=== PATIENT | female | born 2005 | race Caucasian/White ===

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

== ENCOUNTER 2023-08-21 02:04 | Day surgery (SDC) | payer OTHER, SELFPAY ==
[2023-08-12 10:23] VITALS: BMI 18.7
--- NOTE | 2023-08-12 10:29 | PC.NURSE ---
Report to the Outpatient Waiting Room, entrance under the green pavilion located off [facility], at time 0600_ on date _08/21/23_. Planned Procedure Time: _0730_. Time changes happen often and if your time is changed the preop area will call you the afternoon before. - You and your visitor will be asked to self-screen and do not enter if you have any COVID symptoms. - A mask is optional within the hospital at this time. Patients may have clear liquids (water, carbonated beverages, clear teas, apple juice) until 3 hours prior to surgery with a maximum of 20 ounces. - No food from midnight until time of surgery - Infants may have breast milk until 4 hours before surgery, formula 6 hours prior to surgery. - Children will be allowed to drink immediately following surgery. If applicable, please bring a bottle or sippy cup to assist with drinking. Juice, water, soda, and popsicles are readily available. For infants on formula, please bring formula the day of surgery. Pacifiers are allowed. Take the following medications with a SIP of water the morning of surgery: FLUOXITINE DO NOT STOP ANY OF YOUR OTHER PRESCRIPTION MEDICATIONS PRIOR TO SURGERY ?EXCEPT THE FOLLOWING Medications to discontinue per physician NONE Date to take last dose Please no make-up, nail latvian, hairspray, perfume, deodorant, or body powder the day of surgery. No jewelry (including any body piercings) or valuables the day of surgery, leave them at home. Please take a shower or bath the night before, or the morning of, surgery with an antibacterial soap. Wear comfortable, loose fitting clothing. Children are encouraged to wear pajamas. - Jewelry must be removed prior to entering the operating room. Rings and piercings that are not removed may be cut off. - The hospital will not accept responsibility for valuables. - Please leave all valuables, including medications, at home the day of surgery. If you are going home after surgery, a licensed services delivery driver must drive you home. - NO public transportation without another adult if you receive anesthesia. - We recommend that an adult stay with you for 24 hours following discharge. - We also recommend that you do not drive, make important decision, drink alcoholic beverages, or take any drugs that were not prescribed by your health care provider for at least 24 hours after your discharge time. For Pediatric surgeries, we recommend two adults accompany the child home. Follow any additional instructions given to you from your surgeon. If you or anyone in your household have experienced Covid symptoms in the past week, please notify your surgeon or the nurse liaison at the phone number below for possible testing. Telephone instructions given to _PATIENT__and asked if any additional questions and then verbalized understanding. Patient advised to call surgeon office or pre surgery nurse liaison [phone] if any additional questions.
[2023-08-21] VITALS (10 sets, daily range): BP systolic 101–134; BP diastolic 61–91; PULSE 79–106; RESP 14–18; TEMP 35.9–36.4; O2SAT 100
[2023-08-21] MEDS: LACTATED RINGERS 1,000 ML 30 ML IV CONT ×2 (06:40→08:54)
--- NOTE | 2023-08-21 07:05 | WPDHPUPDATE1 ---
History and Physical Update Update Date/Time: 08/21/23 07:05 History and Physical has been reviewed, including an updated exam of the patient. There are NO changes in the patient's condition. Risks, benefits, and alternatives have been discussed and questions answered. Patient agrees to proceed with procedure.
--- NOTE | 2023-08-21 07:05 | W.PM.PROC2 ---
Procedure Note - Detailed Date of Procedure 08/21/23 Pre-op Diagnosis Micromastia Post-op Diagnosis Same Procedure Performed Bilateral augmentation mammaplasty Surgeon Golden Sierra MD Anesthesia General Findings Bilateral Matthew Saline implants filled to 330 cc Right - REF# [id number] SN [id number] Left - REF# [id number] SN [id number] Description of Procedure She is here today for bilateral breast augmentation. Previously and again today the risks, benefits, alternatives were discussed in extensive detail. I wanted her to be very realistic about the risks involved as well as expectations. We discussed aftercare and what to monitor for. Made sure answered all of her questions to her satisfaction today and consent was obtained. Marked in the preoperative holding area with their verification. The patient was taken to the operating room placed supine on the operating table. Anesthesia was provided by anesthesiology. A surgical time-out was taken. We cleansed the skin and 1% lidocaine and 0.25% Marcaine with epinephrine was used anesthetize as a field block. She was prepped and draped in a standard sterile fashion. Tegaderm nipple Ulrich were placed. A 15 blade used to make an incision along the inframammary fold. Dissection was continued at 45 degree angle until the chest wall as identified. I incised the pectoralis major along its inferior border and completely released the inferior border leaving the medial border intact. I created a subpectoral pocket in the appropriate dimensions based on our preoperative planning for the implant. I then copiously irrigated with saline solution and verified a strict hemostasis. Next a Betadine containing solution to irrigate the pocket. I washed my gloves with the Betadine solution. We washed the implant immediately upon opening it and all air was removed. The implant was introduced into the pocket and filled with a fill kit to the volume listed above. Having verified positioning of the implant this was closed using 2-0 PDS followed by 3-0 Monocryl in a running subcuticular 4-0 Monocryl followed by tissue glue. Fluffs and surgical bra were placed. Patient was awoke and taken to PACU without difficulty. All instrument sponge counts were correct at the end of the case. Estimated Blood Loss 25 Drains No Packing No Pathology None sent Complications No immediate complications Condition Stable Disposition PACU
--- NOTE | 2023-08-21 07:15 | WPDANESEPPF ---
Anes - Initial Pre Proc Eval Procedure: Operation Date: 08/21/23 07:30 Proposed Procedures p Bilateral Breast Augmentation with Galaflex - Golden Sierra MD Date/Time: 08/21/23 07:15 Surgeon: Golden Sierra MD Pre Op Diagnosis: Micromastia Patient Data Age: 17 Gender: F Height: 1.6 m Weight: 46.3 kg Last Vital Signs Temp 97.1 F L 08/21/23 06:42 Pulse 79 08/21/23 06:42 Resp 16 08/21/23 06:42 BP 101/61 08/21/23 06:42 Pulse Ox 100 08/21/23 06:42 O2 Del Method Room Air 08/21/23 06:42 Allergies Allergy/AdvReac Type Severity Reaction Status Date / Time No Known Allergies Allergy Verified 08/21/23 07:01 Home Medications Medication Instructions Recorded Confirmed Type fluoxetine 10 mg capsule 10 mg PO DAILY 08/12/23 08/21/23 History Patient hx anesthesia problems: none Family hx anesthesia problems: none Results Review: All pre-operative results and documents have been reviewed as part of the pre-operative evaluation. [facility] Past Medical History Medical History (Updated 08/21/21 @ 00:00 by Ruddy Mera) Patient denies significant medical history Social History Social History (Updated 05/28/21 @ 19:34 by Sukhi Franklin DO) Smoking status: Never smoker Alcohol intake: current Alcohol use details: 4 PER MONTH Substance use: never Living arrangements: with family Anes - Eval Final PreProcedure Day of Procedure 08/21/23 07:15 Patient weight: normal Heart: regular rate and rhythm Lungs: clear to auscultation Airway: Mallampati scale class II Neurological: alert and oriented Last oral intake: >/= 8 hours ASA classification: II Emergent: no Anesthetic plan: proceed Anesthesia type and monitoring: general LMA and standard monitoring Results Review: All pre-operative results and documents have been reviewed as part of the pre-operative evaluation. Informed Consent: The patient's anesthetic plan and its attendant risks and benefits were discussed with the patient/family/POA. Questions were solicited and answers provided to the satisfaction of the patient/family/POA.
[2023-08-21] MEDS: BUPivacaine HCL 0.25% PF 30 ML VIAL INFILTRATE (07:28)
[2023-08-21] MEDS: ceFAZolin 2 GM/D5W 50 ML 2 GM/50 ML BAG IVPB (07:28)
[2023-08-21] MEDS: LIDO 1%/EPINEPHRINE 1:100,000 50 ML VIAL 30 ML INFILTRATE (07:28)
[2023-08-21] MEDS: NACL 0.9% IRRIG POUR BOTTLE 900 ML, GENTAMICIN SULFATE INJ 160 MG, ceFAZolin 2 GM, POVI... IRRIGATION (07:28)
[2023-08-21] MEDS: TRANEXAMIC ACID 1,000MG/ISO100 1,000 MG/100 ML BAG 200 MG IVPB (07:38)
--- NOTE | 2023-08-21 08:19 | SUR.OPER ---
checked Fentanyl out of the pyxsis for this patient and gave to Rayna Holland MAGNETIC GRINDER OPERATOR
[2023-08-21] MEDS: fentaNYL CITRATE INJ (*CRX) 100 MCG/2 ML VIAL 25 MCG IV PUSH ×5 (09:27→10:13)
[2023-08-21] MEDS: ONDANSETRON INJ 4 MG/2 ML VIAL IV PUSH (10:00)
[2023-08-21] MEDS: oxyCODONE HCL (*CRX) 5 MG TAB IR PO (10:11)
== END 2023-08-21 11:29 | disposition home or self-care (01) ==
PROVIDERS: PCP Pediatrics; Visit Provider Surgery Plastic and Reconstructive Surgery
PROC: (CPT 19325; principal; 2023-08-21 07:30)
DX: Z41.1 Encounter for cosmetic surgery (principal); N64.82 Hypoplasia of breast
CPT/HCPCS: 19325; 15777 ×2; A9270; J0690; J1100; J1170; J1580; J2250; J2371; J2405; J2704; J3010; J7030; J7120

== ENCOUNTER 2025-05-11 19:41 | Emergency (ER) | payer BC, SELFPAY ==
--- NOTE | ~2025-05-11 | XR_ITS ---
XR elbow LT min 3V 05/11/2025 20:17 INDICATION: Left elbow pain PROCEDURE: 3 views left elbow COMPARISON: No prior studies for comparison. FINDINGS: Fracture, dislocation or subluxation is not identified. No significant joint effusion. The soft tissues appear within normal limits. No foreign bodies are identified. IMPRESSION: 1: NO ACUTE BONE OR JOINT ABNORMALITY IDENTIFIED. Reviewed, dictated and finalized at location A.
[2025-05-11 19:46] VITALS: BP 107/67; PULSE 76; RESP 20; TEMP 36.6; O2SAT 100
--- NOTE | 2025-05-11 20:05 | ED.UPPEXIN ---
HPI - Extremity Injury (Upper) General Chief Complaint: Extremity Injury, Upper Stated Complaint: Inj to left elbow-fell Time Seen by Provider: 05/11/25 20:00 History of Present Illness HPI narrative: 19-year-old female presents emergency department with family at bedside for left elbow pain. Patient states prior to arrival she was filming a tik tok and her friend was supposed to catch her but did not, causing the patient to fall on the ground. States she landed on her left elbow. She did not hit her head or lose consciousness and denies other injuries acquired. She is reporting pain to the left elbow that is worse with flexion and extension. She denies possibility of . Related Data Home Medications ?Medication ?Instructions ?Recorded ?Confirmed ?Last Taken ?Type fluoxetine 10 mg capsule 10 mg PO DAILY 08/12/23 08/21/23 Unknown History Allergies Allergy/AdvReac Type Severity Reaction Status Date / Time ibuprofen Allergy Mild Itching Verified 05/11/25 20:34 Review of Systems Review of Systems: All systems reviewed & are unremarkable except as noted in HPI and below PMFSH Past Medical History Medical History Patient denies significant medical history Social History Social History Smoking status: Never smoker Alcohol intake: current Alcohol use details: 4 PER MONTH Substance use: never Living arrangements: with family Exam Narrative: GENERAL: Well-appearing, well-nourished, and in no acute distress. HEAD: Normocephalic, atraumatic. ENT: Nares clear, no rhinorrhea or epistaxis. Mucous membranes moist. NECK: Supple. CHEST: Clear to auscultation. No respiratory distress. HEART: Regular rate and rhythm. No murmur heard. Normal peripheral pulses. EXTREMITIES: Patient holding left elbow in flexed position. Tenderness to the proximal ulna. No significant edema, no obvious deformity. No tenderness to shoulder, wrist remainder of extremity. Radial pulses 2+. Sensation intact throughout. Radial, median and ulnar nerves are intact. Full supination and pronation however limited extension and further flexion due to pain. SKIN: Warm, dry, no rash. NEURO: No focal deficits. Alert and oriented x3 Course Vital Signs Vital signs: Vital Signs Temperature 97.8 F 05/11/25 19:46 Pulse Rate 76 05/11/25 19:46 Respiratory Rate 20 05/11/25 19:46 Blood Pressure 107/67 05/11/25 19:46 Pulse Oximetry 100 05/11/25 19:46 Oxygen Delivery Room Air 05/11/25 19:46 Temperature 97.8 F 05/11/25 19:46 Pulse Rate 76 05/11/25 19:46 Respiratory Rate 20 05/11/25 19:46 Blood Pressure 107/67 05/11/25 19:46 Pulse Oximetry 100 05/11/25 19:46 Oxygen Delivery Room Air 05/11/25 19:46 MDM - Extremity Injury (Upper) MDM Narrative Medical decision making narrative: 19-year-old female presents emergency department for left elbow pain after mechanical injury that occurred prior to arrival. See HPI for further history. Triage vitals are stable. Exam is significant for the above. Patient is neurovascularly intact. X-ray shows no acute osseous findings. Patient updated on results. She received [place] and ibuprofen with some improvement. On re-evaluation she does have more range than previous exam. Suspect contusion. Jemal wrap and sling provided. Tylenol and ibuprofen sent to pharmacy. Encouraged RICE and follow-up with PCP. Discussed strict ED return precautions. She is agreeable with the plan verbalized understanding. Discharged in stable condition. Discharge Plan Discharge Clinical Impression: Contusion of elbow, left Qualifiers: Encounter type: initial encounter Qualified Code(s): S50.02XA - Contusion of left elbow, initial encounter Patient Disposition: Home Condition: Stable Instructions: Antibiotic Form, Contusion in Adults (ED) Additional Instructions: Please rest, ice, elevate. Use the Jemal wrap for compression and sling for comfort. Follow up with her primary care provider. Take Tylenol and ibuprofen as needed for pain. Return to the emergency department if you develop significantly worsening pain, fever or other concerning symptoms. Patient Language: Welsh Prescriptions: New acetaminophen 500 mg capsule 500 mg PO Q6H PRN (Reason: pain) Qty: 14 0RF ibuprofen 600 mg tablet 600 mg PO Q6H PRN (Reason: pain) Qty: 14 0RF No Action fluoxetine 10 mg Capsule 10 mg PO DAILY Follow-up/Referrals: Saray Emerson MD [Primary Care Provider, Pediatrics]
--- OUTSIDE RECORDS SUMMARY | 2025-05-11 20:10 | XMS_ITS | Clinical Summary ---
Author Organization [facility] Address [address] [place] [address] Phone Care Team Providers Care Sheet Taker Name Role Phone Saray Emerson MD Primary Care Provid er Allergies Active Allergy Reactions Criticality Noted Date Comments 2-Octyl Cyanoacrylate Itching,Swelling Low 02/29/20 25 At surgical site Chlorhexidin-Isopropyl Alcohol Rash,Itching,Swelli ng Low 02/28/2025 Swelling where the application of solution was applied with previous surgery Medications OTHER Oral contraceptive . Active naproxen (NAPROSYN) 375 mg tablet Take 1 Tablet (375 mg) by mouth 2 times daily with meals. 40 Tablet None 9 Active DM/pseudoephed /acetaminophen (TYLENOL FLU DAY NON-DROWSY ORAL) Take by mouth. Activ e FLUoxetine (PROzac) 20 mg capsule Take 20 mg by mouth 2 times daily. Active Active Problems Problem Noted Date Diagnosed Date Chest pain of uncertain etiology 12/02/2017 Vasovagal syncope 12/02/2017 Encounters Date Type Department Care Team Description 04/06/2025 External Device Data [facility] ABSTRACTION Provider, Abstract 04/05/2025 External Device Data [facility] ABSTRACTION Provider, Abstract 03/08/2025 External Device Data [facility] ABSTRACTION Provider, Abstract 02/15/2025 External Device Data [facility] ABSTRACTION Provider, Abstract 02/10/2025 External Device Data [facility] ABSTRACTION Provider, Abstract 02/09/2025 External Device Data [facility] ABSTRACTION Provider, Abstract 02/08/2025 External Device Data [facility] ABSTRACTION Provider, Abstract from Last 3 Months Family History Medical History Relation Name Comments Healthy Father Other Mother crohns disease/ has a murmur Healthy Sister 17 yo Congenital Heart Defect Neg Hx Sudden Neg Hx Relation Name Status Comments Father Alive Mother Alive Sister Alive Social History Tobacco Use Types Packs/Day Years Used Date Smoking Tobacco: Never Smokeless Tobacco: Never Alcohol Use Standard Drinks/Week Comments Yes 0 (1 standard drink = 0.6 oz pur e alcohol) Comments No Sex and Gender Information Value Date Recorded Sex Assigned at Not on file Legal Sex Female 2:01 PM PROJECT ARCHITECT Gender Identity Not on file Sexual Orientation Not on file Last Filed Vital Signs Vital Sign Reading Time Taken Comments Blood Pressure 114/68 08/12/2020 5:28 PM PROJECT ARCHITECT Pulse 73 08/12/2020 7:50 PM PROJECT ARCHITECT Temperature 37.2 C (99 F) 08/12/2020 7:50 PM PROJECT ARCHITECT Respiratory Rate 18 08/12/2020 7:50 PM PROJECT ARCHITECT Oxygen Saturation 100% 08/12/2020 7:50 PM PROJECT ARCHITECT Inhaled Oxygen Concentration - - Weight 50.7 kg (111 lb 12.4 oz) 08/12/2020 5:28 PM PROJECT ARCHITECT Height 160 cm (5' 3) 02/28/2025 3:17 PM CDT Body Mass Index - - Plan of Treatment Upcoming Encounters Date Type Department Care Team (Latest Contact Info) Description 06/07/2025 7:15 AM CDT Hospital Encounter [facility] Operating Room [address] [place] [address] Christiano Flynn MD [address] [place] [address] Mandibular hypoplasia 06/07/2025 7:15 AM CDT - 06/07/2025 2:47 PM CDT Surgery [facility] Operating Room [address] [place] [address] Christiano Flynn MD [address] [place] [id number] TEMPOROMANDIBULAR JOINT ARTHROPLASTY PROSTHESIS INSERTION Scheduled Procedures Name Priority Associated Diagnoses Date/Ti me TEMPOROMANDIBULAR JOINT ARTHROPLASTY PROSTHESIS 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 06/07/2025 7:15 AM CDT MANDIBULAR RECONSTRUCTION 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 Author Autogenera nettie Goal Care Plan Autogenerated Problem No Deejay Aiken, PROGRAM MANAGER ENVIRONMENTAL PLANNING Additional Health Concerns Active Problems Noted Date Diagnosed Date Autogenerated Problem 04/23/2025 Insurance BS BLUE ACCESS/TRUE BLUE PPO BCBS BLUE ACCESS/TRUE BLUE PPO Care Teams Sheet Taker Relationship Specialty Start Date End Date Saray Emerson MD [address] [place] [address] PCP - General Pediatrics 11/24/17
--- OUTSIDE RECORDS SUMMARY | 2025-05-11 20:10 | XMS_ITS | Clinical Summary ---
Author Organization [facility] Address [address] [place] [address] Care Team Providers Care Remote Encoding Center Manager Name Role Phone Saray Emerson MD Primary Care Provider [phone] Source Comments [facility] Affiliates and Associated Physician Practices is amultiple site organization consisting of ambulatory clinics and hospital sitesin [place], [place], [place] and [place]. This disclosure is being madepursuant to the Care Everywhere program and may not contain all information available regarding this patient. Last updated 18.[facility] [employer] Social History Tobacco Use Types Packs/Day Years Used Date Smoking Tobacco: Never Assessed Comments Unknown Sex and Gender Information Value Date Recorded Sex Assigned at Not on file Legal Sex Female 5:25 PM TURF GROWER Gender Identity Not on file Sexual Orientation Not on file Plan of Treatment Health Maintenance Due Date Last Done Comments HIV SCREENING 12/06/2018 HPV VACCINE (1 - 3-dose series) 12/06/2018 CHLAMYDIA/GONORRHEA SCREENING 2019 MENINGOCOCCAL (Group B) VACC INE SHARED DECISION-MAKING (1 of 2 - Standard) 2019 HEPATITIS C SCREENING 12/02/2021 DTAP/TDAP/TD VACCINES (1 - Tdap) 12/06/2022 HEPATITIS B VACCINE (1 of 3 - 19+ 3-dose series) 12/06/2022 COVID-19 VACCINE ( - 2023-2 5 season) 2024 DEPRESSION SCREENING 09/22/2024 INFLUENZA VACCINE (#1) 2025 ZOSTER VACCINE (1 of 2) 12/06/2053 HIB VACCINE Aged Out No longer eligi ble based on patient's age to complete this topic MENINGOCOCCAL GROUPS A/C/Y/W VACCINE Aged Out No longer eligible b ased on patient's age to complete this topic PNEUMOCOCCAL VACCINE Aged Out No long er eligible based on patient's age to complete this topic Insurance ANTH Care Teams Remote Encoding Center Manager Relationship Specialty Start Date End Date Saray Emerson MD [address] [place] [id number] PCP - General Pediatrics 11/21/17
--- OUTSIDE RECORDS SUMMARY | 2025-05-11 20:10 | XMS_ITS | Clinical Summary ---
Author Organization [facility] Address [address] [place] [address] Phone Care Team Providers Care Facilities Assistant Name Role Phone Saray Emerson MD Primary Care Provider [phone] Allergies No known active allergies Medications Norgestimate-Eth Estradiol 0.25-35 MG-MCG Tablet TK 1 T PO QD 09/01/2018 Active Active Problems No known active problems Social History Tobacco Use Types Packs/Day Years Used Date Smoking Tobacco: Never Smokeless Tobacco: Never Comments No Sex and Gender Information Value Date Recorded Sex Assigned at Not on file Legal Sex Female 1:39 PM COSTUMED CHARACTER Gender Identity Not on file Sexual Orientation Not on file Last Filed Vital Signs Vital Sign Reading Time Taken Comments Blood Pressure 108/68 08/09/2020 2:22 PM COSTUMED CHARACTER Pulse 78 08/09/2020 2:22 PM COSTUMED CHARACTER Temperature 36.6 C (97.8 F) 08/09/2020 2:22 PM COSTUMED CHARACTER Respiratory Rate - - Oxygen Saturation 100% 08/09/2020 2:22 PM COSTUMED CHARACTER Inhaled Oxygen Concentration - - Weight 51.3 kg (113 lb) 08/09/2020 2:22 PM COSTUMED CHARACTER Height - - Body Mass Index - - Plan of Treatment Health Maintenance Due Date Last Done Comments Hepatitis C Virus (HCV) Screening 2003 TdaP Immunization 2003 Human Papillomavirus (HPV) Immunization (1 - 3-dose series) 12/06/2018 Meningococcal B Immunization (1 of 2 - Standard) 2019 Hepatitis B Immunization (1 of 3 - 19+ 3-dose series) 12/06/2022 SARS-COV-2 Immunization ( 2023- season) 2024 Influenza Immunization (#1) 2025 Respiratory Syncytial Virus (RSV) Immunization (Adult) (1 - 1-dose 75+ series) 12/06/2078 Meningococcal Immunization (ACWY) Aged Out No longer eligible based on patient's age to complete this topic Pneumococcal Immunization Combined Aged Out No longer eligible based on patient's age to complete this topic Rotavirus Immunization Aged Out No lo nger eligible based on patient's age to complete this topic Insurance Member Subscriber Plan / Payer (Ef fective 2014-Present) Name:Yaritza Veliz Relation to Subscriber:Child Name:Winston Veliz Date of :1971 (Home) Address: [address] [place] [address] Payer ID:[id number] Type:PPO Address: [address] [place] [id number] Care Teams Facilities Assistant Relationship Specialty Start Date End Date Saray Emerson MD [address] [place] [address] PCP - General Pediatrics 08/09/20
--- OUTSIDE RECORDS SUMMARY | 2025-05-11 20:10 | XMS_ITS | Clinical Summary ---
Author Organization [facility] Address [address] [place] [id number] Care Team Providers Care Weight Reducing Technician Name Role Phone Saray Emerson MD Primary Care Provider [phone] Allergies No known active allergies Medications No known medications Social History Tobacco Use Types Packs/Day Years Used Date Smoking Tobacco: Never Smokeless Tobacco: Never Tobacco Cessation:Counseling Given: Not Answered Alcohol Use Standard Drinks/Week Comments Not Currently 0 (1 standard drink = 0.6 oz pur e alcohol) Comments No Sex and Gender Information Value Date Recorded Sex Assigned at Not on file Legal Sex Female 1:51 PM CDT Gender Identity Not on file Sexual Orientation Not on file Last Filed Vital Signs Vital Sign Reading Time Taken Comments Blood Pressure 101/65 04/23/2023 5:00 PM CDT Pulse 54 04/23/2023 5:00 PM CDT Temperature 36.4 C (97.5 F) 04/23/2023 1:55 PM CDT Respiratory Rate 12 04/23/2023 5:00 PM CDT Oxygen Saturation 99% 04/23/2023 4:30 PM CDT Inhaled Oxygen Concentration - - Weight 48.1 kg (106 lb 0.7 oz) 04/23/2023 2:02 P M CDT Height 160 cm (5' 3) 04/23/2023 1:55 PM CDT Body Mass Index 18.78 04/23/2023 1:55 PM CDT Plan of Treatment Health Maintenance Due Date Last Done Comments Cervical Cancer Screening Pap Smear (Age 21 to 29) Every 3 Years 2003 Cervical Cancer Screening 2003 Annual Physical 12/06/2006 Meningococcal B Vaccine (1 of 2 - Standard) 2019 Hepatitis C 12/06/2021 COVID-19 Vaccine ( season) 2024 DTaP, Tdap and Td Vaccines (7 - Td or Tdap) 05/18/2025 05/18/2015, 01/24/2009, 04/04/2005, Additional history exists Hepatitis B Vaccines Completed 2004, 04/05/2004, 02/01/2004 Pneumococcal Vaccine: Pediatrics (0 to 5 Years) and At-Risk Patients (6 to 49 Years) Completed 2004, 08/28/2004, 06/08/2004, Additional history exists Meningococcal Vaccine Aged Out 05/18/2015 No astrid erik eligible based on patient's age to complete this topic HPV Vaccines Completed 05/20/2016, 05/18/2015 RSV Immunizations Under 20 Months Aged Out No longer eligible based on patient's age to complete this topic Insurance Care Teams Weight Reducing Technician Relationship Specialty Start Date End Date Saray Emerson MD [address] [place] [address] PCP - General PEDIATRICS 04/23/23
[2025-05-11] MEDS: HYDROcodone/acetaminophen (*CRX) 5-325 MG TABLET 1 TAB PO (20:24)
[2025-05-11 21:06] VITALS: PULSE 80; RESP 18; O2SAT 99
== END 2025-05-11 21:08 | disposition home or self-care (01) ==
PROVIDERS: Emergency Provider Physician Assistant; PCP Pediatrics
DX: S50.02XA Contusion of left elbow, initial encounter (principal); W18.39XA Other fall on same level, initial encounter
CPT/HCPCS: 73080; 99283; A4565; A9270